=== PATIENT | female | born 1960 | race Two or more races ===

== ENCOUNTER 2020-08-30 00:52 | Emergency (ER) | payer MEDICARE, MEDICAID ==
[~2020-08-30] VITALS: Ht 172.7 cm; Wt 78.0 kg
[~2020-08-30 00:52] MED LIST: AMLO-150 PO; AMLO-211 PO; ATOR40TA78 PO; CARV12.52 PO; ERGO500017 PO; HYDR-3343 PO; METF500T17 PO; METF500T27 PO
[2020-08-30] MEDS ORDERED: MORPHINE SULFATE 4 MG/ML, 1ML ONE (01:13)
[2020-08-30] MEDS ORDERED: ONDANSETRON 2MG/ML, 2ML ONE ×2 (01:13→03:57)
[2020-08-30] MEDS ORDERED: ONDANSETRON 2MG/ML, 2ML IVPush ONE ×2 (01:30→04:00)
[2020-08-30] MEDS ORDERED: FAMOTIDINE 20 MG/2 ML IVPush ONE (01:30)
[2020-08-30] MEDS ORDERED: MORPHINE SULFATE 4 MG/ML, 1ML IVPush PRN (01:30)
[2020-08-30] MEDS ORDERED: FAMOTIDINE 20 MG/2 ML ONE (01:31)
[2020-08-30 01:40] LABS: BASOPHILS % (AUTO) 0 % (0-1); EOSINOPHILS % (AUTO) 0 % (1-7); LYMPHOCYTES % (AUTO) 6 % (22-44); MEAN CORPUSCULAR HEMOGLOBIN 33.4 pg (27.0-34.8); MEAN CORPUSCULAR HGB CONC 33.6 g/dL (32.4-35.8); MEAN PLATELET VOLUME 7.7 fL (7.4-10.4); MONOCYTES % (AUTO) 4 % (2-9); NEUTROPHILS % (AUTO) 90 % (42-75); PLATELET COUNT 256 x10^3/uL (130-400); RED CELL DISTRIBUTION WIDTH 13.2 % (9.6-15.2)
[2020-08-30 01:41] LABS: MD NO
[2020-08-30 01:49] LABS: ALANINE AMINOTRANSFERASE 36 U/L (12-78); ALBUMIN 4.3 g/dL (3.4-5.0); ANION GAP 13 mmol/L (5-15); CALCIUM 10.6 mg/dL (8.5-10.1); CHLORIDE 100 mmol/L (98-107); CREATININE 7.05 mg/dL (0.55-1.02)
[2020-08-30 01:51] LABS: ALKALINE PHOSPHATASE 108 U/L (45-117); BILIRUBIN,TOTAL 0.6 mg/dL (0.2-1.0); TOTAL PROTEIN 8.4 g/dL (6.4-8.2)
--- NOTE | 2020-08-30 01:58 | NUR ---
Patient comes in with complaints of N/V since yesterday at 3am. Patient states that everything she eat or drinks comes back up. Meds given per DEC. O2 dropped with morphine. Placed on 2L oxygen. Patient states her pain is better, noted to be resting comfortably at this time. Patient placed on criminalist technician. Son at bedside.
[2020-08-30] MEDS ORDERED: PROMETHAZINE 25 MG/ML, 1ML ONE (02:40)
[2020-08-30] MEDS ORDERED: PROMETHAZINE 25 MG/ML, 1ML IM ONE (03:00)
[2020-08-30 04:35] VITALS: BP 198/79
== END 2020-08-30 04:37 | disposition home or self-care (01) ==
LOC: ED 01:45
DX: R10.12 Left upper quadrant pain (principal); R11.2 Nausea with vomiting, unspecified; E86.0 Dehydration; R00.0 Tachycardia, unspecified; E11.9 Type 2 diabetes mellitus without complications; I11.0 Hypertensive heart disease with heart failure; I50.9 Heart failure, unspecified
CPT/HCPCS: 36415; 71045; 74176; 80053; 83605; 83690; 85025; 86850; 86900; 87040; 93005; 96372; 96374; 96375; 96376; 99285; J2270; J2405; J2550